=== PATIENT | female | born 1945 | race Caucasian/White ===

== ENCOUNTER → 2024-10-20 | Outpatient (CLI) | payer MEDICARE, OTHER, SELFPAY ==
--- NOTE | 2024-10-20 15:38 | RAD_ITS ---
PROCEDURE: CHEST PA AND LATERAL 10/20/2024 REASON FOR EXAM: WEIGHT LOSS TECHNIQUE: Frontal and lateral views of the chest. COMPARISON: None. FINDINGS: The lungs appear somewhat hyperlucent. This may be due to COPD type changes. No focal consolidation or infiltrate seen within the lungs. There is minor pulmonary vascular congestion. There is levoscoliosis of the thoracolumbar spine. No definite acute osseous abnormality seen. RAD/Chest PA and Lateral IMPRESSION: No focal infiltrate or consolidation is seen within the lungs. There is no pne umothorax identified. Reading Location: [id number]
== END | disposition home or self-care (01) ==
LOC: RAD 15:37
PROVIDERS: PCP Family Medicine; Referring Provider Nurse Practitioner Acute Care; Visit Provider Nurse Practitioner Acute Care
DX: R63.4 Abnormal weight loss (principal); R10.9 Unspecified abdominal pain
CPT/HCPCS: 71046